=== PATIENT | female | born 1965 | race Caucasian/White ===

== ENCOUNTER 2018-06-30 01:15 | Day surgery (SDC) | payer BC ==
[~2018-06-30] VITALS: Ht 157.5 cm; Wt 77.1 kg
[2018-06-30] VITALS (7 sets, daily range): BP systolic 103–124; BP diastolic 72–90
[~2018-06-30 01:15] MED LIST: L.AC1CAP6; MULT1CAP59 PO; TRIA15CR40 TP
[2018-06-30] MEDS ORDERED: PROPOFOL EMUL(*) 10MG/ML 20 ML 60 ML ONE (07:30)
--- NOTE | 2018-06-30 07:52 | NUR ---
0752 SBAR REPORT WAS RECEIVED FROM DR. BAKER AND LESLY BLAKE. PATIENT IS BREATHING SPONTANEOUSLY AT A MODERATE RATE AND DEPTH. LUNGS ARE CLEAR. SHE IS ON 3 LITERS OXYMASK. BOWEL SOUNDS ARE ACTIVE. SHE IS IN A LEFT LATERAL POSITION. SHE IS SLEEPING. UNABLE TO ASSESS PAIN OR NAUSEA. 0800 PATIENT CONTINUES TO SLEEP 0810 SBAR REPORT GIVEN TO DANIE PAIZ
--- NOTE | 2018-06-30 08:08 | Short(Outpt) Discharge Summary ---
Discharge Summary Reason for Hosp/Final Diag: (1) Family history of colonic polyps Hospital Course & Plan: Colonoscopy with polypectomy x1 completed without problems. Departure Discharge to: Home, Self Care Discharge Instructions Home Meds Reported Medications L.acidoph & Paracasei,B.lactis (Probiotic) Unknown Strength Capsule 04/22/18 Multivitamin (MULTIVITAMINS) Unknown Strength Capsule, PO DAILY, CAPSULE 04/22/18 Diet: Regular Activity: As Tolerated Special Instructions: Your colonoscopy was completed without problems and your prep was excellent (Good Job!!). I removed a single small polyp from your colon and it was sent to pathology. My office will call you in the next week or two to let you know what the polyp is but, in any case, your next colonoscopy should be in 5 years due to your family history of colon polyps. DICK SAXENA MD Jun 30, 2018 08:08
[2018-06-30] MEDS ORDERED: LIDOCAINE/SOD BICARB 8.4% SYR ID ONE (08:20)
[2018-06-30] MEDS ORDERED: NORMOSOL R SOLN(*) 1000 ML BAG 1,000 ML IV PRN (08:20)
== END 2018-06-30 09:15 | disposition home or self-care (01) ==
LOC: OR 01:15
PROVIDERS: ATTEND Surgery
DX: Z12.11 Encounter for screening for malignant neoplasm of colon (principal); D12.2 Benign neoplasm of ascending colon; Z83.71 Family history of colonic polyps
CPT/HCPCS: 00812; 45385; 88305; J2704